=== PATIENT | female | born 1995 | race Caucasian/White ===

== ENCOUNTER → 2018-05-01 | Outpatient (CLI) | payer BC ==
--- NOTE | 2018-05-01 16:38 | US ---
EXAMINATION TYPE: US thyroid st tissue head/neck DATE OF EXAM: 05/01/2018 COMPARISON: NONE CLINICAL HISTORY: R59.0 Cervical lymphadenopathy. Enlarged lymph nodes bilateral neck Multiple lymph nodes bilateral neck with largest = 3.4 x 1.1 x 2.1cm on the right and 4.0 x 0.9 x 2.1 cm on the left IMPRESSION: Bilateral suspicious adenopathy is seen with loss of normal fatty hilum and eccentric th ickened cortex, differential includes product of recent infection or inflammation but neoplastic etio logy such as lymphoma cannot be excluded. Clinical and lab correlation advised. Consider hematology o ncology referral and/or possible contrast-enhanced CT imaging to further evaluate.
== END | disposition home or self-care (01) ==
LOC: RADUSWWP 15:47
PROVIDERS: ATTEND Family Medicine
DX: R59.0 Localized enlarged lymph nodes (principal)
CPT/HCPCS: 76536

== ENCOUNTER → 2018-05-17 | Outpatient (CLI) | payer BC ==
--- NOTE | 2018-05-18 08:40 | CT ---
EXAMINATION TYPE: CT soft tissue neck w con DATE OF EXAM: 05/17/2018 COMPARISON: HISTORY: Neck swelling, enlarged lymph nodes CT DLP: 325.5 mGycm CONTRAST: CT scan of the neck is performed with IV Contrast, patient injected with 100 mL of Isovue 300. Contrast enhanced CT of the neck was performed from the skull base through the lung apices. AIRWAY: The supraglottic, glottic, and subglottic portions of the airway appear patent and free of mass. SALIVARY GLANDS: The submandibular and parotid glands are free of mass or inflammatory process. THYROID GLAND: No nodules or masses seen. LYMPH NODES: Multiple enlarged lymph nodes adjacent to the left submandibular gland measuring 1.3 cm in short axis and 1.1 cm in short axis. 1 cm in short axis on the right as well as an additional lymp h node measuring 9.5 mm short axis. No additional adenopathy is appreciated. LUNG APICES: No nodule or mass is seen. OTHER: Vascular structures are patent. No significant degenerative change of the cervical spine. N o abscess seen. IMPRESSION: 1. Nonspecific adenopathy left greater than right.
== END | disposition home or self-care (01) ==
LOC: RADCTMAIN 17:01
PROVIDERS: ATTEND Family Medicine
DX: R59.0 Localized enlarged lymph nodes (principal)
CPT/HCPCS: 70491; Q9967

== ENCOUNTER 2018-06-11 20:29 | Emergency (ER) | payer BC ==
[2018-06-11 20:41] VITALS: RESP 18; TEMP 98.8
--- NOTE | 2018-06-11 20:44 | ED ---
General Adult HPI - General Chief complaint: Syncope Stated complaint: SYNCOPE Time Seen by Provider: 06/11/18 20:32 Source: patient, EMS, RN notes reviewed Mode of arrival: EMS Limitations: no limitations - History of Present Illness Initial comments: Patient is a pleasant 22-year-old female presenting to the emergency department for possible syncopal episode. Patient states she was at work and felt suddenly dizzy and lightheaded. Patient is not sure but believe she may have passed out. Patient denies any significant injury. Patient states she has not had much of an appetite over the past couple of days. Patient vomited multiple times yesterday. Patient only vomited once today. Patient has been tolerating some fluids. No abdominal pain. No pelvic pain or vaginal bleeding. Patient is a couple of weeks late for her menstrual cycle. No chest pain or dyspnea. No neck pain. No fever. - Related Data Home Medications Medication Instructions Recorded Confirmed Acetaminophen Tab [Tylenol Tab] 650 mg PO Q6H PRN 06/11/18 06/11/18 Allergies Allergy/AdvReac Type Severity Reaction Status Date / Time No Known Allergies Allergy Verified 06/11/18 20:50 Review of Systems ROS Statement: Those systems with pertinent positive or pertinent negative responses have been documented in the HPI. ROS Other: All systems not noted in ROS Statement are negative. Constitutional: Denies: fever, chills Eyes: Denies: eye pain ENT: Denies: ear pain Respiratory: Denies: cough, dyspnea Cardiovascular: Denies: chest pain Endocrine: Denies: as per HPI Gastrointestinal: Reports: nausea, vomiting. Denies: abdominal pain Genitourinary: Denies: dysuria Musculoskeletal: Denies: back pain Skin: Denies: rash Neurological: Denies: headache, weakness Past Medical History Past Medical History: No Reported History History of Any Multi-Drug Resistant Organisms: None Reported Past Surgical History: No Surgical Hx Reported Past Psychological History: No Psychological Hx Reported Smoking Status: Current every day smoker Past Alcohol Use History: None Reported Past Drug Use History: None Reported General Exam Limitations: no limitations General appearance: alert, in no apparent distress Head exam: Present: atraumatic, normocephalic Eye exam: Present: normal appearance, PERRL, EOMI. Absent: nystagmus ENT exam: Present: normal oropharynx Neck exam: Present: normal inspection. Absent: tenderness Respiratory exam: Present: normal lung sounds bilaterally Cardiovascular Exam: Present: regular rate, normal rhythm Expanded Peripheral pulses: 2+: Radial (R), Radial (L), Dorsalis Pedis (R), Dorsalis Pedis (L) GI/Abdominal exam: Present: soft. Absent: tenderness Extremities exam: Present: normal inspection. Absent: pedal edema, calf tenderness Neurological exam: Present: alert, CN II-XII intact. Absent: motor sensory deficit Expanded Neurological exam: Present: protecting the airway Speech: Present: fluid speech Cranial nerves: EOM's Intact: Normal Sensory exam: Upper Extremity Light Touch: Normal, Lower Extremity Light Touch: Normal Motor strength exam: RUE: 5, LUE: 5, RLE: 5, LLE: 5 Eye Response: (4) open spontaneously Motor Response: (6) obeys commands Verbal Response: (5) oriented Psychiatric exam: Present: normal affect, normal mood Skin exam: Present: normal color Course Vital Signs 06/11/18 06/11/18 06/11/18 20:39 20:45 20:48 Temperature 98.8 F Pulse Rate 69 60 Pulse Rate [ 61 Apical] Respiratory 18 18 Rate Blood Pressure 88/48 79/47 O2 Sat by Pulse 99 100 Oximetry 06/11/18 06/11/18 06/11/18 21:00 21:15 21:30 Temperature Pulse Rate 62 60 58 L Pulse Rate [ Apical] Respiratory 18 18 Rate Blood Pressure 79/47 84/52 88/53 O2 Sat by Pulse 100 100 Oximetry 06/11/18 06/11/18 06/11/18 21:51 22:01 22:21 Temperature Pulse Rate 56 L 60 62 Pulse Rate [ Apical] Respiratory Rate Blood Pressure 81/50 95/62 99/57 O2 Sat by Pulse Oximetry 06/11/18 06/11/18 06/12/18 22:41 23:18 00:05 Temperature Pulse Rate 58 L 50 L Pulse Rate [ Apical] Respiratory 18 Rate Blood Pressure 85/50 83/54 90/55 O2 Sat by Pulse 99 Oximetry EKG Findings - EKG Comments: EKG Findings:: Normal sinus rhythm 62. AK 178. QRS 80. QT 404. QTC 410. Normal axis. Normal QRS. No acute ST change. Medical Decision Making - Medical Decision Making Patient reevaluated and significantly improved. Patient was able to get up and walk around without difficulty. Patient is eating and drinking in the emergency Department. Case was discussed in detail with Dr. Mcdermott, covering for [employer]. He feels patient is likely dehydrated and there is not need for admission. Patient is updated regarding this and happy to be discharged home. - Lab Data Result diagrams: 06/11/18 20:49 06/11/18 20:49 Lab Results 06/11/18 06/11/18 06/11/18 Range/Units 20:49 20:49 20:49 WBC 6.5 (3.8-10.6) k/uL RBC 3.58 L (3.80-5.40) m/uL Hgb 10.7 L (11.4-16.0) gm/dL Hct 32.4 L (34.0-46.0) % MCV 90.5 (80.0-100.0) fL MCH 29.8 (25.0-35.0) pg MCHC 32.9 (31.0-37.0) g/dL RDW 13.2 (11.5-15.5) % Plt Count 278 (150-450) k/uL Neutrophils % 67 % Lymphocytes % 27 % Monocytes % 4 % Eosinophils % 0 % Basophils % 0 % Neutrophils # 4.4 (1.3-7.7) k/uL Lymphocytes # 1.8 (1.0-4.8) k/uL Monocytes # 0.3 (0-1.0) k/uL Eosinophils # 0.0 (0-0.7) k/uL Basophils # 0.0 (0-0.2) k/uL PT (9.0-12.0) sec INR (<1.2) APTT (22.0-30.0) sec Sodium 136 L (137-145) mmol/L Potassium 3.6 (3.5-5.1) mmol/L Chloride 109 H (98-107) mmol/L Carbon Dioxide 20 L (22-30) mmol/L Anion Gap 7 mmol/L BUN 5 L (7-17) mg/dL Creatinine 0.53 (0.52-1.04) mg/dL Est GFR (CKD-EPI)AfAm >90 (>60 ml/min/1.73 sqM) Est GFR (CKD-EPI)NonAf >90 (>60 ml/min/1.73 sqM) Glucose 102 H (74-99) mg/dL Calcium 8.8 (8.4-10.2) mg/dL Magnesium 1.7 (1.6-2.3) mg/dL Total Bilirubin 0.2 (0.2-1.3) mg/dL AST 11 L (14-36) U/L ALT 22 (9-52) U/L Alkaline Phosphatase 33 L (38-126) U/L Total Creatine Kinase 80 (30-135) U/L CK-MB (CK-2) 0.4 (0.0-2.4) ng/mL CK-MB (CK-2) Rel Index 0.5 Troponin I <0.012 (0.000-0.034) ng/mL Total Protein 5.8 L (6.3-8.2) g/dL Albumin 3.6 (3.5-5.0) g/dL HCG, Quant 13442.4 mIU/mL Urine Color Urine Appearance (Clear) Urine pH (5.0-8.0) Ur Specific [place] (1.001-1.035) Urine Protein (Negative) Urine Glucose (UA) (Negative) Urine Ketones (Negative) Urine Blood (Negative) Urine Nitrite (Negative) Urine Bilirubin (Negative) Urine Urobilinogen (<2.0) mg/dL Ur Leukocyte Esterase (Negative) Urine RBC (0-5) /hpf Urine WBC (0-5) /hpf Ur Squamous Epith Cells (0-4) /hpf Urine Mucus (None) /hpf 06/11/18 06/12/18 Range/Units 20:49 00:06 WBC (3.8-10.6) k/uL RBC (3.80-5.40) m/uL Hgb (11.4-16.0) gm/dL Hct (34.0-46.0) % MCV (80.0-100.0) fL MCH (25.0-35.0) pg MCHC (31.0-37.0) g/dL RDW (11.5-15.5) % Plt Count (150-450) k/uL Neutrophils % % Lymphocytes % % Monocytes % % Eosinophils % % Basophils % % Neutrophils # (1.3-7.7) k/uL Lymphocytes # (1.0-4.8) k/uL Monocytes # (0-1.0) k/uL Eosinophils # (0-0.7) k/uL Basophils # (0-0.2) k/uL PT 10.6 (9.0-12.0) sec INR 1.1 (<1.2) APTT 23.2 (22.0-30.0) sec Sodium (137-145) mmol/L Potassium (3.5-5.1) mmol/L Chloride (98-107) mmol/L Carbon Dioxide (22-30) mmol/L Anion Gap mmol/L BUN (7-17) mg/dL Creatinine (0.52-1.04) mg/dL Est GFR (CKD-EPI)AfAm (>60 ml/min/1.73 sqM) Est GFR (CKD-EPI)NonAf (>60 ml/min/1.73 sqM) Glucose (74-99) mg/dL Calcium (8.4-10.2) mg/dL Magnesium (1.6-2.3) mg/dL Total Bilirubin (0.2-1.3) mg/dL AST (14-36) U/L ALT (9-52) U/L Alkaline Phosphatase (38-126) U/L Total Creatine Kinase (30-135) U/L CK-MB (CK-2) (0.0-2.4) ng/mL CK-MB (CK-2) Rel Index Troponin I (0.000-0.034) ng/mL Total Protein (6.3-8.2) g/dL Albumin (3.5-5.0) g/dL HCG, Quant mIU/mL Urine Color Yellow Urine Appearance Clear (Clear) Urine pH 6.0 (5.0-8.0) Ur Specific [place] 1.026 (1.001-1.035) Urine Protein 1+ H (Negative) Urine Glucose (UA) Negative (Negative) Urine Ketones 1+ H (Negative) Urine Blood Negative (Negative) Urine Nitrite Negative (Negative) Urine Bilirubin Negative (Negative) Urine Urobilinogen <2.0 (<2.0) mg/dL Ur Leukocyte Esterase Negative (Negative) Urine RBC 2 (0-5) /hpf Urine WBC 5 (0-5) /hpf Ur Squamous Epith Cells <1 (0-4) /hpf Urine Mucus Many H (None) /hpf - Radiology Data Radiology results: report reviewed (Computed tomography scan of the brain reveals no acute process. Ultrasound shows viable IUP 6 weeks 6 days. Heart rate 145.), image reviewed ( Chest x-ray shows no acute process.) Disposition Clinical Impression: Syncope, Hyperemesis gravidarum Disposition: HOME SELF-CARE Condition: Stable Instructions: Syncope (ED), Hyperemesis Gravidarum (ED) Additional Instructions: Please follow-up with primary care physician as well as [employer] in the next day or 2 for recheck. Increase fluid intake. Return for passing out, persistent vomiting, pelvic pain, vaginal bleeding, worsening symptoms or any other concerns. Is patient prescribed a controlled substance at d/c from ED?: No Referrals: Charly Sidhu MD [Primary Care Provider] - 1-2 days Time of Disposition: 00:41
[2018-06-11] MEDS: SODIUM CHLORIDE 0.9% 1,000 ML IV STA ×2 (20:47→20:59)
[2018-06-11] MEDS ORDERED: SODIUM CHLORIDE 0.9% 1,000 ML IV STA (21:03)
[2018-06-11 21:07] LABS: Basophils % (A) 0 %; Eosinophils % (A) 0 %; HCT 32.4 % (34.0-46.0); HGB 10.7 gm/dL (11.4-16.0); Lymphocytes # (A) 1.8 k/uL (1.0-4.8); Lymphocytes % (A) 27 %; MCH 29.8 pg (25.0-35.0); MCHC 32.9 g/dL (31.0-37.0); MCV 90.5 fL (80.0-100.0); Mean Platelet Volume 6.5; Monocytes # (A) 0.3 k/uL (0-1.0); Monocytes % (A) 4 %; Neutrophils # (A) 4.4 k/uL (1.3-7.7); Neutrophils % (A) 67 %; Platelet Count 278 k/uL (150-450); RBC 3.58 m/uL (3.80-5.40); RDW 13.2 % (11.5-15.5); WBC 6.5 k/uL (3.8-10.6)
[2018-06-11 21:18] LABS: ALT 22 U/L (9-52); AST 11 U/L (14-36); Albumin 3.6 g/dL (3.5-5.0); Alkaline Phosphatase 33 U/L (38-126); Anion Gap 7 mmol/L; Blood Urea Nitrogen 5 mg/dL (7-17); Calcium 8.8 mg/dL (8.4-10.2); Carbon Dioxide 20 mmol/L (22-30); Chloride 109 mmol/L (98-107); Glucose 102 mg/dL (74-99); Magnesium 1.7 mg/dL (1.6-2.3); Potassium 3.6 mmol/L (3.5-5.1); Sodium 136 mmol/L (137-145); Total Bilirubin 0.2 mg/dL (0.2-1.3); Total Protein 5.8 g/dL (6.3-8.2)
[2018-06-11 21:27] LABS: INR 1.1 (<1.2); Partial Thromboplastin Time 23.2 sec (22.0-30.0); Prothrombin Time 10.6 sec (9.0-12.0)
[2018-06-11 21:29] LABS: Creatine Kinase 80 U/L (30-135)
[2018-06-11 21:43] LABS: Creatine Kinase MB 0.4 ng/mL (0.0-2.4); Troponin I <0.012 ng/mL (0.000-0.034)
[2018-06-11 21:54] LABS: HCG,Quantitative Serum 51716.4 mIU/mL
--- NOTE | 2018-06-11 22:13 | XR ---
EXAMINATION TYPE: XR chest 2V DATE OF EXAM: 06/11/2018 COMPARISON: NONE HISTORY: Chest pain. Syncope TECHNIQUE: Frontal and lateral views of the chest are obtained. FINDINGS: Heart and mediastinum are normal. Lungs are clear. Diaphragm is normal. Bony thorax appear s normal. There are chest leads. IMPRESSION: Normal chest
--- NOTE | 2018-06-11 22:15 | CT ---
EXAMINATION TYPE: CT brain wo con DATE OF EXAM: 06/11/2018 COMPARISON: None HISTORY: Syncopal episode today. CT DLP: 887.2 mGycm. Automated Exposure Control for Dose Reduction was Utilized. TECHNIQUE: CT scan of the head is performed without contrast. FINDINGS: Ventricles of normal size. There is no mass effect nor midline shift. There is no sign of intracranial hemorrhage. The calvarium is intact. IMPRESSION: Negative CT scan of the rain.
--- NOTE | 2018-06-11 22:47 | US ---
EXAMINATION TYPE: Transabdominal DATE OF EXAM: 02/06/18 COMPARISON: NONE CLINICAL HISTORY: pain. Syncope hypotension EXAM PERFORMED: Transabdominal (TA) EXAM MEASUREMENTS: GESTATIONAL AGE / DATING Physician Established: Not yet established Dates by LMP: (6 weeks/3 days) EDC: 02/01/2019 Dates by First Scan: No previous this is first scan Dates by Current Scan for: (6 weeks/6 days) EDC: 01/29/2019 MATERNAL ANATOMY Uterus: 8.7 x 5.5 x 6.1 cm Right Ovary: 2.7 x 1.7 x 2.6 cm Left Ovary: 2.3 x 1.5 x 1.3 cm Post CDS / Adnexa: wnl Presence of free fluid: no Presence of corpus luteal cyst: yes left ovary Presence of subchorionic bleed: No GESTATION / SURVEY CRL: 0.91 cm (6 weeks/6 days) Yolk Sac (normal less than 6mm): 3mm Heart Rate: 145 bpm Rhythm: Normal IUP: Viable IUP Beta HcG (if available): 31028.4 Viable IUP 6w 6d VARGHESE 01/29/2019 HR 145 BPM IMPRESSION: The ultrasound gestational age is 6 weeks and 6 days. No complicating process seen.
[2018-06-11 23:19] VITALS: PULSE 50
[2018-06-12] MEDS ORDERED: SODIUM CHLORIDE 0.9% 1,000 ML IV STA (00:02)
[2018-06-12 00:20] VITALS: BP 90/55
[2018-06-12 00:24] LABS: Appearance,Urine Clear (Clear); Bilirubin,Urine Negative (Negative); Blood,Urine Negative (Negative); Color,Urine Yellow; Glucose,Urine (UA) Negative (Negative); Ketones,Urine 1+ (Negative); Leukocyte Esterase,Urine Negative (Negative); Mucus,Urine Many /hpf; Nitrite,Urine Negative (Negative); Protein,Urine 1+ (Negative); RBC,Urine 2 /hpf (0-5); Specific Gravity,Urine 1.026 (1.001-1.035); Squamous Epithelial Cell,Urine <1 /hpf (0-4); Urobilinogen,Urine <2.0 mg/dL (<2.0); WBC,Urine 5 /hpf (0-5)
== END 2018-06-12 01:03 | disposition home or self-care (01) ==
LOC: EC 20:29
DX: O21.0 Mild hyperemesis gravidarum (principal); O99.89 Other specified diseases and conditions complicating pregnancy, childbirth and the puerperium; R55 Syncope and collapse; O99.331 Smoking (tobacco) complicating pregnancy, first trimester; F17.200 Nicotine dependence, unspecified, uncomplicated; Z3A.01 Less than 8 weeks gestation of pregnancy
CPT/HCPCS: 36415; 70450; 71046; 76801; 80053; 81001; 82550; 82553; 83735; 84484; 84702; 85025; 85610; 85730; 93005; 96360; 96361; 99285

== ENCOUNTER 2023-03-13 11:04 | Outpatient (CLI) | payer OTHER ==
[2023-03-13 14:33] VITALS: BP 127/76; PULSE 73; RESP 17; TEMP 96.8
--- NOTE | 2023-04-01 11:32 | P.MSEPDOC ---
Presenting Problems - Arrival Data Date of Arrival on Unit: 03/13/23 Time of Arrival on Unit: 11:04 Mode of Transport: Ambulatory - Complaint OB-Reason for Admission/Chief Complaint: Possible Onset of Labor, Rule Out SROM Comment: pt presents to triage for loss of mucous plug and questionable SROM, no pain with contractions and not regular Medical History - Information : 2 Para: 1 Term: 1 : 0 Abortions: Spontaneous or Elective: 0 Number of Living Children: 1 - Gestational Age Gestational Age by VARGHESE (wks/days): 39 Weeks and 0 Days - History Complications: Smoker Comment: smokes [facility] Review of Systems - Review of Systems Constitutional: No problems Breast: No problems ENT: No problems Cardiovascular: No problems Respiratory: No problems Gastrointestinal: No problems Genitourinary: No problems Musculoskeletal: No problems Neurological: No problems Skin: No problems Vital Signs - Temperature Temperature: 96.8 F Temperature Source: Temporal Artery Scan - Pulse Right Brachial Pulse Rate: 73 Pulse Assessment Method: Automatic Cuff - Respirations Respiratory Rate: 17 Oxygen Delivery Method: Room Air - Blood Pressure Right Arm Blood Pressure: 127/76 Blood Pressure Mean: 93 Blood Pressure Source: Automatic Cuff Medical Screen Scoring - Cervical Exam Dilation (cm): 3.0 Effacement (%): 60 Station: -2 Membranes: Intact - Uterine Contractions Intensity: Mild Resting: Soft to palpation - Assessment - Baby A Baseline FHR: 120 NST: Reactive Physician Notification - Physician Notified Physician Notified Date: 03/13/23 Physician Notified Time: 12:20 Physician: Fei Lilly Order Received: Yes - Notification Comment Comment: no cervical change after an hour, amniosure negative Maternal Triage Index - Maternal Triage Index Presenting for scheduled procedure w/no complaint: No - Stat/Priority 1 Stat Priority 1: No - Urgent/Priority 2 Urgent Priority 2: No - Prompt/Priority 3 Prompt Priority 3: Yes Criteria Met for Priority 3: pt presents to triage for loss of mucous plug and questionable SROM, no pain with contractions and not regular Disposition - Disposition OB Disposition: Triage, Discharge to home, Written follow up instructions reviewed Discharge Date: 03/13/23 Discharge Time: 13:00 I agree with the RN Medical Screening Exam: Yes Physician's MSE Comment: I have neither seen and examined the patient. Case reviewed; plan agreed upon as documented in EMR&OBIX.: Yes Diagnosis: RELATED CONDITIONS, UNSPECIFIED, THIRD TRIMESTER
== END 2023-03-13 13:00 | disposition home or self-care (01) ==
LOC: FBPOP 11:04
PROVIDERS: ATTEND Obstetrics & Gynecology
DX: O26.893 Other specified pregnancy related conditions, third trimester (principal); Z3A.39 39 weeks gestation of pregnancy; O99.333 Smoking (tobacco) complicating pregnancy, third trimester; F17.200 Nicotine dependence, unspecified, uncomplicated; Z88.0 Allergy status to penicillin; Z88.1 Allergy status to other antibiotic agents
CPT/HCPCS: 59025; 84112; G0463; 99213

== ENCOUNTER 2023-03-15 23:50 | Inpatient (IN) | payer OTHER ==
--- NOTE | 2023-03-16 00:58 | P.HPOB ---
History of Present Illness H&P Date: 03/16/23 Chief Complaint: Strong regular uterine contractions This is a 27-year-old female 2 para 1001 EDC 03/20/2023 at 39-5/7 weeks' gestation who presented from home with strong regular uterine contractions. Fetus is been active throughout the . She states her water broke at approximately 2100 hrs., light meconium-stained fluid. Fetus is been active throughout the . Past medical history is significant for depression and Scratch fever. Current medications Zofran 4 mg as needed, vitamin daily. ALLERGIES include penicillin to which reports hives. Family history significant for hypertension, hypothyroidism, diabetes. Social history patient is single, father of the baby is present and involved, current tobacco smoker 4-5 cigarettes daily, denies alcohol or drug use. Past surgical history is essentially negative. history blood type is A+, rubella status immune. Hepatitis B surface antigen, gonorrhea and chlamydia cultures, urine culture, HIV testing, group B strep cultures all negative. One-hour Glucola 100. On exam patient is 5 foot 6 inches, 222 pounds, vital signs are stable and she is afebrile. General physical exam is within normal limits. Cervix on admission is 8 cm dilated, 90% effaced, -2 station, vertex presentation, light meconium-stained fluid noted. heart rate consistent with reactive NST. Impression: 39-3/7 weeks intrauterine , active labor, light meconium- stained fluid. All signs otherwise reassuring. Plan: Anticipating rapid normal spontaneous vaginal delivery. Review of Systems Constitutional: Reports as per HPI Past Medical History Past Medical History: No Reported History History of Any Multi-Drug Resistant Organisms: None Reported Past Surgical History: No Surgical Hx Reported Past Psychological History: Depression Smoking Status: Current every day smoker Medications and Allergies Home Medications Medication Instructions Recorded Confirmed Type Acetaminophen Tab [Tylenol Tab] 650 mg PO Q6H PRN 06/11/18 03/15/23 History valACYclovir HCL [Valtrex] 500 mg PO BID 03/13/23 03/15/23 History Allergies Allergy/AdvReac Type Severity Reaction Status Date / Time amoxicillin Allergy Rash/Hives Verified 03/15/23 23:57 cephalexin [From Keflex] Allergy Rash/Hives Verified 03/15/23 23:57 Penicillins Allergy Rash/Hives Verified 03/15/23 23:57 Exam Intake and Output 03/15/23 03/15/23 03/16/23 14:59 22:59 06:59 Other: Weight 100.698 kg See dictation under HPI please Assessment and Plan Assessment: 39-3/7 weeks intrauterine , light meconium-stained fluid, active labor. Plan: Close maternal and surveillance. Anticipate normal spontaneous vaginal delivery. Time with Patient: Less than 30
[2023-03-16] MEDS ORDERED: ACETAMINOPHEN TAB 325 MG TAB PO PRN (01:00)
[2023-03-16] MEDS ORDERED: diphenhydrAMINE 50 MG CAP PO PRN (01:00)
[2023-03-16] MEDS ORDERED: diphenhydrAMINE ELIXIR 25 MG/10 ML CUP PO PRN (01:00)
[2023-03-16] MEDS ORDERED: ZOLPIDEM 5 MG TAB PO PRN (01:00)
[2023-03-16] MEDS ORDERED: diphenhydrAMINE 25 MG CAP PO PRN (01:00)
[2023-03-16] MEDS ORDERED: HYDROCORTISONE 2.5% RECTAL CREAM 30 GM TUBE RECTAL PRN (01:00)
[2023-03-16] MEDS ORDERED: LANOLIN CREAM 5 GM TUBE TOPICAL PRN (01:00)
[2023-03-16] MEDS ORDERED: SIMETHICONE 80 MG CHEWABLE PO PRN (01:00)
[2023-03-16] MEDS ORDERED: diphenhydrAMINE 50 MG/ML 1 ML VIAL IVP PRN ×2 (01:00)
[2023-03-16] MEDS ORDERED: BENZOCAINE/MENTHOL SPRAY 1 GM/SPRAY AEROSOL TOPICAL PRN (01:00)
--- NOTE | 2023-03-16 01:00 | P.PROBDLV ---
Vaginal Delivery Note - . Vaginal Delivery Note: This is a 29-year-old female 2 para 1001 EDC 03/20/2023 at 39-3/7 weeks' gestation. Patient presented from home with strong regular uterine contractions and spontaneous amniorrhexis. Blood type is A+, rubella status immune, group B strep cultures negative. Please see dictated history and physical for details. On admission patient was 8 cm dilated, she quickly became completely dilated at 0032 hours with a strong urge to push. Perineal body was prepped and draped in usual sterile fashion. head delivered occiput anterior and restituted accordingly. There was no nuchal cord noted. Patient very rapidly delivered a liveborn male with scores of 9 and 9 at one and 5 minutes respectively. Infant's time 0035 hours. Umbilical cord is doubly clamped and ligated, he is handed to waiting nurses for evaluation where scores of 9 and 9 at one and 5 minutes respectively are given. Placenta delivered spontaneously, it is inspected and noted to be intact with trivascular cord at 0039 hours. Uterus is massaged. Careful inspection of the cervix, vagina, perineum, periurethral, and perirectal areas revealed no lacerations or defects. Total estimated blood loss 150 mL's. Infant weighs 8 pounds 14.7 ounces or 4045 g. P alexis is requesting circumcision for her son.
[2023-03-16 01:53] VITALS: RESP 16
[2023-03-16] MEDS ORDERED: OXYTOCIN 30 UNITS/500 ML NS 30 UNIT in SALINE 1 500ML.BAG IV SCH (02:30)
[2023-03-16 02:47] LABS: Basophils % (A) 0 %; Eosinophils # (A) 0.1 k/uL (0-0.7); Eosinophils % (A) 0 %; HCT 34.3 % (34.0-46.0); HGB 10.9 gm/dL (11.4-16.0); Lymphocytes # (A) 2.4 k/uL (1.0-4.8); Lymphocytes % (A) 14 %; MCH 28.3 pg (25.0-35.0); MCV 88.4 fL (80.0-100.0); Mean Platelet Volume 7.5; Monocytes % (A) 6 %; Neutrophils # (A) 12.9 k/uL (1.3-7.7); Neutrophils % (A) 79 %; Platelet Count 445 k/uL (150-450); RBC 3.87 m/uL (3.80-5.40); RDW 13.3 % (11.5-15.5); WBC 16.5 k/uL (3.8-10.6)
[2023-03-16] MEDS: IBUPROFEN 600 MG TAB PO SCH ×4 (04:50→18:20)
[2023-03-16] MEDS: SENNOSIDES-DOCUSATE SODIUM 1 EACH TAB PO SCH (08:40)
--- NOTE | 2023-03-16 17:22 | P.DS ---
Providers Date of admission: 03/16/23 00:07 Expected date of discharge: 03/16/23 Attending physician: Fei Lilly Primary care physician: Stated None - Discharge Diagnosis(es) (1) Normal spontaneous vaginal delivery Current Visit: Yes Status: Acute Hospital Course: the patient is a 27-year-old 2 para 1001 admitted at 39-5/7 weeks by good dating parameters. She is admitted in active labor having had spontaneous rupture of membranes with light meconium-stained fluid. Her was uncomplicated and group B strep status is negative. On labor and delivery, she presented at 8 cm of dilation and progressed quickly to complete where after she pushed to a normal spontaneous vaginal delivery of a viable 8 lbs. 15 oz. baby boy with Apgars of 9 at 1 minute and 9 at 5 minutes. Her course was unremarkable with vital signs remained stable and her temperature was afebrile throughout. She was deemed stable for discharge on day 1 was discharged home to follow-up in the office in 6 weeks' time routinely. Discharge instructions included calling for any significantly increased bleeding or foul-smelling lochia, significantly increased fever abdominal pain, perineal complaints, breast complaints, or anything else that concerned her. She is additionally instructed to have nothing in the vagina for at least 6 weeks time to include intercourse. She understood her instructions and agrees to follow up as noted above. Discharge medications included continued vitamins as she has opted to breast-feed. She was otherwise to use [id number] analgesic pain medications as needed. Maternal blood type is A+ and rubella status is immune. Procedures: #1. Normal spontaneous vaginal delivery Patient Condition at Discharge: Stable Plan - Discharge Summary New Discharge Prescriptions: No Action Acetaminophen Tab [Tylenol Tab] 650 mg PO Q6H PRN PRN Reason: Pain valACYclovir HCL [Valtrex] 500 mg PO BID Discharge Medication List Acetaminophen Tab [Tylenol Tab] 650 mg PO Q6H PRN 06/11/18 [History] valACYclovir HCL [Valtrex] 500 mg PO BID 03/13/23 [History] Follow up Appointment(s)/Referral(s): Fei Lilly MD [STAFF PHYSICIAN] - 6 Weeks Discharge Disposition: HOME SELF-CARE
[2023-03-16 21:10] VITALS: BP 98/60; PULSE 84; TEMP 97.3
[2023-03-17] MEDS: IBUPROFEN 600 MG TAB PO SCH (01:56)
[2023-03-17] MEDS: SENNOSIDES-DOCUSATE SODIUM 1 EACH TAB PO SCH (01:56)
== END 2023-03-17 01:40 | disposition home or self-care (01) | DRG 560 ==
LOC: FBPOP 23:50 → 4FBP 03-16 00:07
PROVIDERS: ADMIT Obstetrics & Gynecology; ATTEND Obstetrics & Gynecology
PROC: 10E0XZZ Delivery of Products of Conception, External Approach (ICD-10-PCS; principal; 2023-03-16)
DX: O77.0 Labor and delivery complicated by meconium in amniotic fluid (principal); O99.334 Smoking (tobacco) complicating childbirth; F32.A Depression, unspecified; O99.344 Other mental disorders complicating childbirth; F17.210 Nicotine dependence, cigarettes, uncomplicated; Z37.0 Single live birth; Z3A.39 39 weeks gestation of pregnancy; O69.81X0 Labor and delivery complicated by cord around neck, without compression, not applicable or unspecified; Z28.310 Unvaccinated for COVID-19; Z28.21 Immunization not carried out because of patient refusal; Z88.1 Allergy status to other antibiotic agents; Z88.0 Allergy status to penicillin
CPT/HCPCS: 59025; 84112; 85025; 86850; 86900; 86901; 99213

== ENCOUNTER → 2023-05-19 | Outpatient (CLI) | payer OTHER ==
[2023-05-19 15:43] LABS: Basophils # (A) 0.03 X 10*3/uL (0.00-0.10); Basophils % (A) 0.4 %; Eosinophils # (A) 0.07 X 10*3/uL (0.04-0.35); HCT 35.6 % (37.2-46.3); HGB 11.4 d/dL (12.0-15.0); Lymphocytes % (A) 35.3 %; MCH 28.1 pg (27.0-32.0); MCV 87.9 FL (80.0-97.0); Mean Platelet Volume 9.1 FL (9.5-12.2); Monocytes # (A) 0.39 X 10*3/uL (0.20-1.00); Monocytes % (A) 5.3 %; NRBC Per 100 WBC 0 X 10*3/uL (0.00-0.01); Neutrophils # (A) 4.25 X 10*3/uL (1.80-7.70); Neutrophils % (A) 57.7 %; Platelet Count 334 X 10*3/uL (140-440); RBC 4.05 X 10*6/uL (4.10-5.20); RDW 14.2 % (11.5-14.5); WBC 7.36 X 10*3/uL (4.50-10.00)
== END | disposition home or self-care (01) ==
LOC: LABPAT 10:10
PROVIDERS: ATTEND Obstetrics & Gynecology
DX: Z30.2 Encounter for sterilization (principal)
CPT/HCPCS: 36415; 85025

== ENCOUNTER 2023-06-09 07:36 | Day surgery (SDC) | payer OTHER ==
[~2023-06-09 07:36] MED LIST: DEXAMETHASONE SOD PHOSPHATE 4 MG/ML 1 ML VIAL IV ONE; HYDROmorphone 0.5 MG/0.5 ML SYRINGE IVP PRN; LACTATED RINGERS 1,000 ML IV SCH; LIDOCAINE 1% (10MG/ML) FOR IV START INTRADERMA PRN; ONDANSETRON 4 MG/2 ML VIAL IVP ONE; Pre Op ABX Message 1 EACH MISC MISCELLANE ONE
[2023-06-09 08:11] VITALS: RESP 16
[2023-06-09] MEDS ORDERED: BUPIVACAINE (PF) 0.25% 30 ML VIAL SQ ONE (08:42)
[2023-06-09] MEDS ORDERED: PROPOFOL 10 MG/ML 20 ML VIAL IV ONE (08:51)
[2023-06-09] MEDS ORDERED: fentaNYL (PF) 50 MCG/ML 2 ML AMP ONE (08:51)
[2023-06-09] MEDS ORDERED: KETOROLAC 15 MG/ML 1 ML VIAL ONE (08:51)
[2023-06-09] MEDS ORDERED: LIDOCAINE 2% INJ 20 MG/ML (2 ML VIAL) ONE (08:51)
[2023-06-09] MEDS ORDERED: ROCURONIUM 10 MG/ML (5 ML VIAL) IV ONE (08:51)
[2023-06-09] MEDS ORDERED: MIDAZOLAM 2 MG/2 ML VIAL ONE (08:51)
[2023-06-09] MEDS ORDERED: HYDROmorphone (PF) 1 MG/ML ONE (08:51)
[2023-06-09] MEDS ORDERED: NEOSTIGMINE 1 MG/ML 10 ML VIAL ONE (08:51)
[2023-06-09] MEDS ORDERED: GLYCOPYRROLATE 0.2 MG/ML 2 ML VIAL ONE (08:51)
[2023-06-09] MEDS ORDERED: SUCCINYLCHOLINE CHLORIDE 200 MG/10 ML VIAL IV ONE (08:51)
[2023-06-09] MEDS ORDERED: BUPIVACAINE (PF) 0.5% 30 ML VIAL SQ ONE ×2 (09:10→09:24)
[2023-06-09] MEDS ORDERED: ONDANSETRON 4 MG/2 ML VIAL IVP PRN (09:33)
[2023-06-09] MEDS ORDERED: IBUPROFEN 600 MG TAB PO PRN (09:33)
[2023-06-09] MEDS ORDERED: Acetaminophen-Codeine 300-30mg TAB PO PRN ×2 (09:33)
[2023-06-09] MEDS ORDERED: SIMETHICONE 80 MG CHEWABLE PO PRN (09:33)
[2023-06-09] MEDS ORDERED: KETOROLAC 15 MG/ML 1 ML VIAL IVP PRN (09:33)
[2023-06-09] MEDS ORDERED: diphenhydrAMINE 50 MG/ML 1 ML VIAL IVP PRN (09:33)
[2023-06-09] MEDS ORDERED: METOCLOPRAMIDE 5 MG/ML 2 ML VIAL IVP PRN (09:33)
--- NOTE | 2023-06-09 09:41 | P.OP ---
Date of Procedure: 06/09/23 Preoperative Diagnosis: #1. Multiparity #2. Undesired fertility Postoperative Diagnosis: Same Procedure(s) Performed: #1. Laparoscopic bilateral tubal occlusion with Filshie clips Anesthesia: RANDELL Surgeon: Fei Lilly Estimated Blood Loss (ml): 2 IV fluids (ml): 600 Urine output (ml): 25 Pathology: none sent Condition: stable Disposition: PACU Operative Findings: Preoperative pelvic examination demonstrated a 5 week anteverted mobile normal shaped uterus with normal adnexa bilaterally. Intraoperatively, these findings were confirmed with no evidence of pathology throughout the pelvis to include endometriosis. Uterus, tubes, and ovaries were normal to inspection. The small and large bowel as well as the liver, gallbladder, and diaphragm were entirely normal to inspection. The appendix appeared to be retrocecal. A Filshie clip was firmly placed across the isthmic portion of each fallopian tube approximately 2-3 cm from the cornu bilaterally. Description of Procedure: The patient was prepped and draped in usual fashion after general endotracheal anesthesia was administered by the anesthesiologist. A speculum was placed after draining the bladder approximately 25 mL of clear eliza urine. The anterior lip of the cervix was grasped with a single-tooth tenaculum and an acorn cannula placed for intraoperative manipulation of the uterus. The speculum was removed and attention turned to the abdomen. A roughly 5 mm incision was made in a vertical fold of the umbilicus allowing insertion of a 5 mm optical trocar under direct visualization without difficulty. A pneumoperitoneum was then instilled. Trendelenburg positioning was utilized and a site was selected approximately 4-57 m above the pubic sepsis in the midline where an 8 mm incision was made in the transverse plane. This allowed insertion of an 8 mm optical trocar under direct vision station without difficulty. The blunt probe was utilized to sweep the bowel from the pelvis and the findings are as noted above. The probe was replaced with a Filshie clip applicator which was utilized to place a Filshie clip firmly across the right fallopian tube approximately 2-3 cm from the cornu where was firmly affixed. A similar operation was carried out on the left side without difficulty. Explanation of the remainder of the abdomen demonstrates no pathologic findings and the findings are as noted as above. The instrument H was removed aside from the trochars and the pneumoperitoneum completely drained through the trochars which were then removed. The skin incisions were closed with interrupted subcuticular stitches of 4-0 Vicryl. The 2 incisions were infused with a total of 8 mL of half percent Marcaine without epinephrine equally divided between the 2 incisions. Estimated blood loss for the case was approximately 2 mL. There were no complications. The instrumentation was removed from the cervix. The patient tolerated the procedure well and proceeded to the recovery room in stable condition.
[2023-06-09] MEDS ORDERED: LACTATED RINGERS 1,000 ML IV SCH (09:45)
[2023-06-09 09:51] VITALS: TEMP 97.6
[2023-06-09 10:27] VITALS: BP 159/94; PULSE 46
[2023-06-10] MEDS ORDERED: ACETAMINOPHEN TAB 325 MG TAB PO PRN (09:34)
== END 2023-06-09 10:44 | disposition home or self-care (01) ==
LOC: OR 07:36
PROVIDERS: ATTEND Obstetrics & Gynecology
DX: Z30.2 Encounter for sterilization (principal); Z64.1 Problems related to multiparity; F32.A Depression, unspecified; Z88.0 Allergy status to penicillin; F17.290 Nicotine dependence, other tobacco product, uncomplicated
CPT/HCPCS: 81025; 58671; J2250; J0330; J1100; J2710; J2405; J3010; J1170; J1885; J2704; J2001; J0665